=== PATIENT | male | born 2000 | race African-American/Black ===

== ENCOUNTER 2019-01-29 11:29 | Outpatient (CLI) | payer OTHER ==
[2019-01-29 12:00] LABS: PLATELET COUNT 204 K/uL (142-355)
[2019-01-29 12:07] LABS: POTASSIUM 3.8 mmol/L (3.6-5.2)
[2019-01-29 12:49] LABS: PARTIAL THROMBOPLASTIN TIME 24.2 SECONDS (24.5-33.6)
== END 2019-01-29 19:51 | disposition home or self-care (01) ==
LOC: LABW 11:29
PROVIDERS: Orthopaedic Surgery
DX: Z01.818 Encounter for other preprocedural examination (principal)
CPT/HCPCS: 36415; 80048; 85027; 85610; 85730

== ENCOUNTER 2019-05-09 12:40 | Outpatient (CLI) | payer OTHER ==
[2019-05-09 13:06] LABS: PLATELET COUNT 394 K/uL (142-355)
[2019-05-09 13:08] LABS: POTASSIUM 3.9 mmol/L (3.6-5.2)
[2019-05-09 13:19] LABS: PARTIAL THROMBOPLASTIN TIME 29.4 SECONDS (24.5-33.6)
== END 2019-05-09 20:14 | disposition home or self-care (01) ==
LOC: LABW 12:40
PROVIDERS: Orthopaedic Surgery
DX: Z01.818 Encounter for other preprocedural examination (principal)
CPT/HCPCS: 36415; 80048; 85027; 85610; 85730

== ENCOUNTER 2019-07-17 08:37 | Outpatient (CLI) | payer OTHER ==
[2019-07-17 09:53] LABS: PLATELET COUNT 227 K/uL (142-355)
== END 2019-07-17 22:25 | disposition home or self-care (01) ==
LOC: LABW 08:37
PROVIDERS: Internal Medicine Infectious Disease
DX: M00.061 Staphylococcal arthritis, right knee (principal)
CPT/HCPCS: 36415; 85027; 86140